=== PATIENT | female | born 2000 | race African-American/Black ===

== ENCOUNTER 2023-02-05 18:30 | Emergency (ER) | payer OTHER ==
[~2023-02-05] VITALS: Ht 165.1 cm; Wt 52.0 kg
[2023-02-05 18:33] VITALS: BP 115/72; PULSE 73; RESP 16; TEMP 98.2; O2SAT 100
== END 2023-02-05 19:02 | disposition left against medical advice (07) ==
LOC: ER 18:30
DX: R55 Syncope and collapse (principal); R42 Dizziness and giddiness
CPT/HCPCS: 99283